=== PATIENT | male | born 1985 | race Caucasian/White ===

== ENCOUNTER 2017-06-11 19:42 | Emergency (ER) | payer BC, SELFPAY ==
[2017-06-11 19:42] VITALS: PULSE 71
[2017-06-11 19:43] VITALS: BP 154/79; PULSE 71; RESP 18; TEMP 36.7; O2SAT 100; BMI 23.7
--- NOTE | 2017-06-11 19:55 | XR_ITS ---
XR chest 2V HISTORY: ITS.REASON: CHEST PAIN ORDERING PHYSICIAN: PATIENT AGE: 31 years COMPARISON: 11/02/2012 FINDINGS: The cardiomediastinal silhouette and pulmonary vascularity are within normal limits. The lungs are clear without infiltrates, suspicious nodules, or pleural effusions. Calcified granuloma left lower lobe No acute bony abnormalities. IMPRESSION: No change no acute finding
--- NOTE | 2017-06-11 19:56 | PC.NURSE ---
PT REPORTS HE TOOK FOUR(40) 81mg aspirin before coming to the emergency room.
[2017-06-11 20:15] LABS: Basophils # 0.1 K/mm3 (0-0.2); Basophils % 0.8 % (0.1-2.0); Eosinophils # 0.2 K/mm3 (0.0-0.4); Eosinophils % 2.9 % (0.1-12.0); Hemoglobin 14.4 g/dL (14.1-18.0); Lymphocytes # 2.9 K/mm3 (0.7-4.5); Lymphocytes % 36.2 K/mm3 (10-50); Mean Corpuscular HGB Conc 33.6 g/dL (31.8-35.4); Mean Corpuscular Hemoglobin 29.1 pg (27.0-31.2); Mean Corpuscular Volume 86.7 fl (80-94); Mean Platelet Volume 7.7 fl (7.4-10.4); Monocytes # 0.4 K/mm3 (0.1-1.0); Neutrophils # 4.5 K/mm3 (1.8-7.8); Platelet Count 308 K/mm3 (142-424); Red Blood Count 4.97 M/mm3 (4.60-6.20); Red Cell Distribution Width 12.7 % (11.5-17.5); White Blood Count 8.1 K/mm3 (4.8-10.8)
--- NOTE | 2017-06-11 20:23 | [facility].EDCP ---
ED Disposition Clinical Impression: Atypical chest pain Disposition: Home, Self-Care Condition on Discharge: Good Instructions: DI for Atypical Chest Pain Additional Instructions: see pcp for follow up Referrals: Provider,Referral, [Primary Care Provider] - - Critical Care Critical Care Time: No Attestation: On , the high probability of a clinically significant, sudden or life threatening deterioration of the following system(s) required my full and direct attention, intervention and personal management. The time I documented below is in addition to time spent performing reported procedures but includes the following listed in this critical care notation. Medical Decision Making - Medical Records Medical records reviewed: Yes: I reviewed the patient's medical records. Vital Signs: 06/11/17 19:42 06/11/17 19:43 06/11/17 20:42 Temperature 98.0 F Temperature Source Oral Pulse Rate 71 Pulse Rate [Right Radial] 71 85 Respiratory Rate 18 18 Blood Pressure [Right Arm] 154/79 140/91 Blood Pressure Mean [Right Arm] 104 107 Blood Pressure Source [Right Arm] Automatic Cuff Blood Pressure Position [Right Arm] Sitting 02 Sat by Pulse Oximetry 100 96 Oxygen Delivery Method Room Air Room Air - Lab Data Lab results reviewed: Yes: I reviewed the patient's lab results. Lab Results 06/11/17 19:50: WBC 8.1, RBC 4.97, Hgb 14.4, Hct 43.0, MCV 86.7, MCH 29.1, MCHC 33.6, RDW 12.7, Plt Count 308, MPV 7.7, Neut % (Auto) 55.0, Lymph % (Auto) 36.2, [place] % (Auto) 5.0, Eos % (Auto) 2.9, Baso % (Auto) 0.8, Neut # (Auto) 4.5, Lymph # (Auto) 2.9, [place] # (Auto) 0.4, Eos # (Auto) 0.2, Baso # (Auto) 0.1 06/11/17 19:50: Sodium 137, Potassium 4.0, Chloride 101, Carbon Dioxide 28, Anion Gap 12.0, BUN 30 H, Creatinine 0.97, Estimated Creat Clear 123, Estimated GFR 90, Est GFR ( Amer) 109, Glucose 91, Calcium 9.0, Total Bilirubin 0.3, AST 42 H, ALT 31, Alkaline Phosphatase 76, Total Creatine Kinase 826 H*, CK-MB (CK-2) 10.5 H*, CK-MB (CK-2) Rel Index 1.3, Troponin I < 0.02, Total Protein 8.3 H, Albumin 4.1, Globulin 4.2 H, Albumin/Globulin Ratio 1.0 L Result diagrams: 06/11/17 19:50 06/11/17 19:50 Orders (Tests/Meds): ED MEDICATIONS Generic Name Dose Route Start Last Admin Trade Name Freq PRN Reason Stop Dose Admin Lactated Ringer's 1,000 mls @ 999 mls/hr 06/11/17 21:15 06/11/17 21:25 Lactated Ringer's 1000 Ml Bag IV 06/11/17 22:15 999 mls/hr .Q1H1M HEATHER Administration ORDERS Category Date Time Status XR chest 2V Stat Exams 06/11/17 19:55 Taken UDS [Drug Screen,Urine] Stat Lab 06/11/17 20:12 Ordered Urinalysis and Microscopic Stat Lab 06/11/17 20:12 Ordered 12-lead EKG Request [ECG Request by /Gabbi] Stat Y 06/11/17 19:56 Ordered - Radiology Data #1 Image(s): Chest Image Reviewed: Yes I reviewed the patient's radiology image Preliminary Findings: Normal/NAD - ECG Data Tracing #1 I reviewed this ECG and interpreted as documented below: Ischemic changes: non-specific ST-T wave changes - Man Inquiry Pt receiving controlled substance: No Chest Pain HPI - General Chief Complaint: Chest Pain Stated Complaint: CHEST PAIN Time Seen by Provider: 06/11/17 20:24 Mode of Arrival: Ambulatory Source of Information: Patient, Medical Record Limitations: No Limitations Description of Symptoms (Recalled from ER Triage Doc. by RN): PT REPORTS HE JUST GOT OFF WORK AND STARTED EXPERIENCING DIFFICULTY BREATHING, AND TIGHTNESS IN HIS CHEST THAT TURNED INTO DULL PAIN. - History of Present Illness HPI narrative: pt with acute onset of chest pain with warm feeling this pm after work complaint: chest pain Onset (ago): hour(s) Duration: now resolved Pain location: right chest Severity: mild Quality: sharp Pain radiation: RUE Risk Factors for CAD: Family Hx of CAD, Smoking Treatments prior to or on arrival for Cardiac Chest Pain: aspirin - Related Data Home
--- NOTE | 2017-06-11 20:26 | ED_ITS ---
ED Disposition Clinical Impression: Atypical chest pain Disposition: Home, Self-Care Condition on Discharge: Good Instructions: DI for Atypical Chest Pain Additional Instructions: see pcp for follow up Referrals: Provider,Referral, [Primary Care Provider] - - Critical Care Critical Care Time: No Attestation: On , the high probability of a clinically significant, sudden or life threatening deterioration of the following system(s) required my full and direct attention, intervention and personal management. The time I documented below is in addition to time spent performing reported procedures but includes the following listed in this critical care notation. Medical Decision Making - Medical Records Medical records reviewed: Yes: I reviewed the patient's medical records. Vital Signs: 06/11/17 19:42 06/11/17 19:43 06/11/17 20:42 Temperature 98.0 F Temperature Source Oral Pulse Rate 71 Pulse Rate [Right Radial] 71 85 Respiratory Rate 18 18 Blood Pressure [Right Arm] 154/79 140/91 Blood Pressure Mean [Right Arm] 104 107 Blood Pressure Source [Right Arm] Automatic Cuff Blood Pressure Position [Right Arm] Sitting 02 Sat by Pulse Oximetry 100 96 Oxygen Delivery Method Room Air Room Air - Lab Data Lab results reviewed: Yes: I reviewed the patient's lab results. Lab Results 06/11/17 19:50: WBC 8.1, RBC 4.97, Hgb 14.4, Hct 43.0, MCV 86.7, MCH 29.1, MCHC 33.6, RDW 12.7, Plt Count 308, MPV 7.7, Neut % (Auto) 55.0, Lymph % (Auto) 36.2 , [place] % (Auto) 5.0, Eos % (Auto) 2.9, Baso % (Auto) 0.8, Neut # (Auto) 4.5, Lymph # (Auto) 2.9, [place] # (Auto) 0.4, Eos # (Auto) 0.2, Baso # (Auto) 0.1 06/11/17 19:50: Sodium 137, Potassium 4.0, Chloride 101, Carbon Dioxide 28, Anion Gap 12.0, BUN 30 H, Creatinine 0.97, Estimated Creat Clear 123, Estimated GFR 90, Est GFR ( Amer) 109, Glucose 91, Calcium 9.0, Total Bilirubin 0.3 , AST 42 H, ALT 31, Alkaline Phosphatase 76, Total Creatine Kinase 826 H*, CK- MB (CK-2) 10.5 H*, CK-MB (CK-2) Rel Index 1.3, Troponin I < 0.02, Total Protein 8.3 H, Albumin 4.1, Globulin 4.2 H, Albumin/Globulin Ratio 1.0 L Result diagrams: 06/11/17 19:50 06/11/17 19:50 Orders (Tests/Meds): ED MEDICATIONS Generic Name Dose Route Start Last Admin Trade Name Freq PRN Reason Stop Dose Admin Lactated Ringer's 1,000 mls @ 999 mls/hr 06/11/17 21:15 06/11/17 21:25 Lactated Ringer's 1000 Ml Bag IV 06/11/17 22:15 999 mls/hr .Q1H1M HEATHER Administration ORDERS Category Date Time Status XR chest 2V Stat Exams 06/11/17 19:55 Taken UDS [Drug Screen,Urine] Stat Lab 06/11/17 20:12 Ordered Urinalysis and Microscopic Stat Lab 06/11/17 20:12 Ordered 12-lead EKG Request [ECG Request by /Gabbi] Stat Y 06/11/17 19:56 Ordered - Radiology Data #1 Image(s): Chest Image Reviewed: Yes I reviewed the patient's radiology image Preliminary Findings: Normal/NAD - ECG Data Tracing #1 I reviewed this ECG and interpreted as documented below: Ischemic changes: non-specific ST-T wave changes - Man Inquiry Pt receiving controlled substance: No Chest Pain HPI - General Chief Complaint: Chest Pain Stated Complaint: CHEST PAIN Time Seen by Provider: 06/11/17 20:24 Mode of Arrival: Ambulatory Source of Information: Patient, Medical Record Limitations: No L
[2017-06-11 20:34] LABS: Alanine Aminotransferase 31 U/L (12-78); Albumin Level 4.1 gm/dL (3.4-5.0); Alkaline Phosphatase 76 U/L (46-116); Aspartate Amino Transferase 42 U/L (15-37); Bilirubin,Total 0.3 mg/dL (0.2-1.0); Blood Urea Nitrogen 30 mg/dL (7-18); CKMB Relative Index 1.3 U/L (0-4.0); Carbon Dioxide 28 mmol/L (21.0-32.0); Chloride 101 mmol/L (98-107); Creatine Kinase 826 U/L (39-308); Creatinine Clearance Estimated 123 mL/min (0-300); Creatinine,Serum 0.97 mg/dL (0.70-1.30); Estimated Glomerular Filt Rate 90 ml/min (>60); GFR (African American) 109 ML/MIN (>60); Globulin 4.2 gm/dl (1.3-3.2); Glucose 91 mg/dL (74-106); Sodium 137 mmol/L (136-145); Total Protein,Serum 8.3 gm/dL (6.4-8.2); Troponin I < 0.02 ng/ml (0.00-0.06)
[2017-06-11 20:42] VITALS: BP 140/91; PULSE 85; RESP 18; O2SAT 96
[2017-06-11 20:46] LABS: Creatine Kinase MB 10.5 mg/ml (0.0-3.6)
--- NOTE | 2017-06-11 20:47 | PC.NURSE ---
REPORTED [facility] OF 10.5 TO
[2017-06-11 22:00] VITALS: BP 135/80; PULSE 88; RESP 18; O2SAT 98
== END 2017-06-11 22:06 | disposition home or self-care (01) ==
PROVIDERS: Emergency Medicine; Emergency Provider Emergency Medicine; Family Provider Internal Medicine Adolescent Medicine
DX: R07.89 Other chest pain (principal)
CPT/HCPCS: 71046; 80053; 82550; 82553; 84484; 85025; 93005; 93041; 96365; 99284

== ENCOUNTER → 2017-07-01 14:11 | Outpatient (REF) | payer BC, SELFPAY ==
[2017-07-01 16:00] LABS: Chol/HDL Ratio 2.9 (1-3.5); Cholesterol 129 mg/dL (140-200); HDL Cholesterol 45 mg/dL (27-67); LDL Cholesterol 66 mg/dL (0-130); Triglycerides 92 mg/dL (30-200); VLDL Cholesterol 18 mg/dL (0-40)
== END ==
LOC: LAB 14:11
PROVIDERS: Visit Provider Emergency Medicine
DX: R53.83 Other fatigue (principal)
CPT/HCPCS: 80061

== ENCOUNTER → 2018-08-27 18:16 | Outpatient (CLI) | payer BC, SELFPAY | PROVIDERS: Visit Provider Emergency Medicine | DX: R19.5 Other fecal abnormalities (principal) | CPT/HCPCS: 87045; 87177 ==

== ENCOUNTER → 2019-06-22 11:47 | Outpatient (POV) | payer BC, SELFPAY | PROVIDERS: Visit Provider Nurse Practitioner Family | DX: Z00.00 Encounter for general adult medical examination without abnormal findings (principal) ==